=== PATIENT | male | born 1960 | race Caucasian/White ===

== ENCOUNTER 2023-02-14 09:55 | Observation (INO) ==
--- NOTE | 2023-01-19 13:33 | PAT Medication Instructions ---
Medication Instructions Date of Service January 19, 2023 Home Medications acetaminophen 500 mg tablet (Tylenol Extra Strength) 500 - 1,000 mg PO Q6H PRN Pain calcium citrate 500 mg-vitamin D3 12.5 mcg (500 unit) chewable tablet 1 tab PO QAM cholecalciferol (vitamin D3) 25 mcg (1,000 unit) tablet 25 mcg PO QAM furosemide 20 mg tablet (Lasix) 20 mg PO DAILY PRN LEG SWELLING vitamin B complex 1 tab PO QAM multivitamin 1 tab PO QAM DO NOT take the morning of surgery calcium citrate 500 mg-vitamin D3 12.5 mcg (500 unit) chewable tablet 1 tab PO QAM cholecalciferol (vitamin D3) 25 mcg (1,000 unit) tablet 25 mcg PO QAM furosemide 20 mg tablet (Lasix) 20 mg PO DAILY PRN LEG SWELLING vitamin B complex 1 tab PO QAM multivitamin 1 tab PO QAM Take morning of surgery With a small sip of water, OTHERWISE NOTHING TO EAT OR DRINK AFTER MIDNIGHT: acetaminophen 500 mg tablet (Tylenol Extra Strength) 500 - 1,000 mg PO Q6H PRN Pain (if needed) Other Notes If you have any questions please call us at [phone] or [phone] or [phone] or [phone]
--- NOTE | 2023-01-28 09:12 | Anesthesiology Consultation ---
Date of Service January 28, 2023 Assessment & Plan (1) Encounter for pre-operative examination: - COVID screening: Per assessment on 01/28: No known COVID-19 positive contacts or current COVID-19 related symptoms. Travel screen negative. At surgeon discretion if preop Covid testing being done. - Outpatient joint assessment: Pt currently scheduled for inpatient pathway. If surgeon requests review for outpatient joint pathway, patient is an acceptable candidate for outpatient joint program from anesthesia standpoint pending surgeon's office assessment that patient is motivated, has good support and completes [facility] Program preop requirements. - Hemidiaphragm elevation: Patient scheduled for right shoulder surgery. Preop CXR showed elevation of the right hemidiaphragm - Hypernatremia: Sodium mildly elevated at 147 on preop labs. Will recheck level AM DOS. Chart Review Chart Review: Acceptable Risk for Surgery and Patient seen in Pre Admission Testing Teaching & Discussion Pre-Anesthesia Teaching/Discussion Notes: Instructed NPO after midnight before surgery,except medications with 15 cc of water. Medication instructions provided according to the PAT guidelines. History Surgery Operation Date: 02/14/23 07:15 Proposed Procedures p Right Total Shoulder Arthroplasty Reverse - Forrest Aleman MD Height/Weight Height: 5 ft 7 in Weight: 103.6 kg Allergies Allergy/AdvReac Type Severity Reaction Status Date / Time latex Allergy Mild IRRITATION Verified 01/19/23 10:51 OF SKIN indomethacin AdvReac Intermediate SEVERE Verified 01/19/23 10:51 VOMITING Medications Home Medications Medication Instructions Recorded Confirmed Last Taken acetaminophen 500 mg tablet 500 - 1,000 mg PO Q6H PRN Pain 11/02/22 01/19/23 Unknown (Tylenol Extra Strength) calcium citrate 500 mg-vitamin D3 1 tab PO QAM 11/02/22 01/19/23 Unknown 12.5 mcg (500 unit) chewable tablet cholecalciferol (vitamin D3) 25 25 mcg PO QAM 11/02/22 01/19/23 Unknown mcg (1,000 unit) tablet furosemide 20 mg tablet (Lasix) 20 mg PO DAILY PRN LEG SWELLING 11/02/22 01/19/23 Unknown vitamin B complex 1 tab PO QAM 11/02/22 01/19/23 Unknown multivitamin 1 tab PO QAM 01/19/23 01/19/23 Unknown Past Medical History Medical History Arthritis GERD (gastroesophageal reflux disease) History of COVID-19 2020 > resolved History of high blood pressure No issues, "resolved" after weight loss Hx of gout Hx of sleep apnea "Resolved" after weight loss (no formal retesting per patient) Needle phobia Exercise / Class Metabolic Activity II 4-5 Yardwork/Stairs/Walk up hill Past Family History Family History Other No family history of adverse response to anesthesia Past Surgical History Surgical History H/O detached retina repair LEFT H/O gastric bypass 2017 H/O shoulder surgery R/L H/O umbilical hernia repair History of ankle surgery LEFT (+ HARDWARE) History of cataract surgery R/L History of esophagogastroduodenoscopy (EGD) History of surgery on left wrist History of tonsillectomy History of total hip arthroplasty R/L Past Anesthesia History No Hx of Anesthesia Complications and No Family Hx of Anesthesia Complications History of PONV No Hx of PONV and No Hx of Motion Sickness Social History Smoking Status: Never smoker Do You Dip or Chew Tobacco: No Hx Alcohol Use: No Hx Substance Use: No substance use type: does not use Review of Systems Patient denies chest pain, shortness of breath, dyspnea on exertion, fever, chills, cough, wheezing, palpitations. Physical Exam Vital Signs VITALS BP 137/77 P 70 TEMP 98.2 SP02 95%RA RESP 18 PHYSICAL Full cervical extension range of motion. Full TMJ range of motion. TMD 3.5 finger breaths Mallampati Score 2 Dentition: intact Lungs: clear throughout to auscultation Cardiac: regular rate and rhythm, no murmurs noted Spine: normal Carotid arteries: negative bruit Extremities: no LE edema Lab Results Anesthesia Preop Results Results Anesthesia Widget: WBC 4.83 K/ul (4.8-10.8) 01/28/23 Hgb 14.2 g/dl (14.0-18.0) 01/28/23 Hct 44.0 % (42.0-52.0) 01/28/23 Plt 187 K/uL (130-400) 01/28/23 Na 147 mmol/L (136-145) H 01/28/23 K 3.9 mmol/L (3.5-5.1) 01/28/23 Cl 112 mmol/L (98-107) H 01/28/23 CO2 31 mmol/L (21-32) 01/28/23 BUN 27 mg/dl (6-23) H 01/28/23 Creat 1.17 mg/dl (0.6-1.4) 01/28/23 Glucose Level 93 mg/dl (70-99(Fasting)) 01/28/23 PT 11.2 Seconds (9.0-12.0) 01/28/23 PTT 28.0 Seconds (21.0-31.0) 01/28/23 INR 1.0 (0.9-1.1) 01/28/23 Urine Color Yellow 01/28/23 Urine Appearance Cloudy (Clear) A 01/28/23 Urine pH 5.5 (4.5-7.5) 01/28/23 Urine Specific [place] 1.014 (1.000-1.030) 01/28/23 Urine Protein Negative (Negative) 01/28/23 Urine Glucose (UA) Negative (Negative) 01/28/23 Urine Ketones Negative (Negative) 01/28/23 Urine Blood Negative (Negative) 01/28/23 Urine Nitrite Positive (Negative) A 01/28/23 Urine Bilirubin Negative (Negative) 01/28/23 Urine Urobilinogen Negative (Negative) 01/28/23 Urine Leukocyte Esterase 2+ (Negative) H 01/28/23 Urine WBC (Auto) >30 /hpf (0-5) H 01/28/23 Urine RBC (Auto) 0-4 /hpf (0-4) 01/28/23 Urine Hyaline Casts (Auto) 1-5 /lpf (0-5) 01/28/23 Urine Epithelial Cells (Auto) 0-5 /lpf (0-5) 01/28/23 Urine Bacteria (Auto) 4+ (Negative) H 01/28/23 Blood Type O Positive 01/28/23 Antibody Screen NEGATIVE 01/28/23 Testing Laboratory Results Surgeon's office made aware of abnormal UA* Electrocardiogram Date: 01/28/23 NSR at 74bpm. Chest X-Ray Date: 01/28/23 FINDINGS: PA and lateral chest radiographs are compared to study dated 09/24/2008. The cardiomediastinal silhouette is unremarkable. There is elevation of the right hemidiaphragm and bibasilar atelectasis. No airspace consolidation typical for pneumonia or pleural effusion is identified. There is no pneumothorax. The skeletal structures are osteopenic. There are chronic/healed right-sided rib fractures. Degenerative change is seen throughout the spine. IMPRESSION: No active disease in the chest. COVID-19 Risk Screen Screening Information COVID-19 Screen Date: 01/28/23 Exposure 21 Days Family/Household +COVID Last 21 Days: No Exposure 10 Days Any COVID Exposure Last 10 Days: No Symptoms Last 10 Days Experienced COVID Sx Last 10 Days: No + COVID 0-90 Days COVID + in Last 0-90 Days: No
--- NOTE | 2023-02-13 14:15 | History & Physical Report ---
Date of Service February 13, 2023 Assessment & Plan (1) Rotator cuff arthropathy of right shoulder: Plan: Treatment options discussed with the patient. He has failed conservative management and would like to proceed with surgical intervention. Risks, benefits and alternatives to surgery including but not limited to infection, DVT, pain, stiffness, need for revision surgery, damage to blood vessels, damage to nerves, PE, , were discussed with the patient and they wish to proceed. Plan for right reverse total shoulder arthroplasty scheduled for February 14 at [facility] with Dr. Aleman. All questions answered. Patient will follow- up postop. History of Present Illness Chief Complaint: Right shoulder pain Primary Care Provider: Felipe Esquivel MD 62-year-old male with no significant past medical history who presents with ongoing right shoulder pain. Pain is interfering with his daily activities. He has failed conservative measures. He would like to proceed with surgical invention. Patient denies headaches, sweats, fevers, chills, double vision, blurred vision, cough, sore throat, dysphagia, chest pain, sob, wheezing, n/v/d/c, numbness, tingling, fatigue, urinary symptoms, mood disorders. ROS positive for right shoulder pain and stiffness. Allergies Allergy/AdvReac Type Severity Reaction Status Date / Time latex Allergy Mild IRRITATION Verified 01/31/23 13:26 OF SKIN indomethacin AdvReac Intermediate SEVERE Verified 01/31/23 13:26 VOMITING Home Medications Medication Instructions Recorded Confirmed Type acetaminophen 500 mg tablet 500 - 1,000 mg PO Q6H PRN Pain 11/02/22 01/31/23 History (Tylenol Extra Strength) calcium citrate 500 mg-vitamin D3 1 tab PO QAM 11/02/22 01/31/23 History 12.5 mcg (500 unit) chewable tablet cholecalciferol (vitamin D3) 25 25 mcg PO QAM 11/02/22 01/31/23 History mcg (1,000 unit) tablet vitamin B complex 1 tab PO QAM 11/02/22 01/31/23 History multivitamin 1 tab PO QAM 01/19/23 01/31/23 History levofloxacin 500 mg tablet 500 mg PO DAILY 28 days #28 tabs 02/02/23 Rx Past Med/Surg History Medical History Arthritis GERD (gastroesophageal reflux disease) History of COVID-19 2020 > resolved History of high blood pressure No issues, "resolved" after weight loss Hx of gout Hx of sleep apnea "Resolved" after weight loss (no formal retesting per patient) Needle phobia Surgical History H/O detached retina repair LEFT H/O gastric bypass 2018 H/O shoulder surgery R/L H/O umbilical hernia repair History of ankle surgery LEFT (+ HARDWARE) History of cataract surgery R/L History of esophagogastroduodenoscopy (EGD) History of surgery on left wrist History of tonsillectomy History of total hip arthroplasty R/L Family History Other No family history of adverse response to anesthesia Social History (Updated 11/03/22 @ 11:53 by China Breaux LPN) Smoking Status: Never smoker Second Hand Exposure: No; Do You Dip or Chew Tobacco: No; Hx Alcohol Use: No Hx Substance Use: No Preferred Language: Swedish Visual Impairment: Limited Hearing Ability: Normal Interactive Video Technician Required: No Beliefs That Will Affect Care: None marital status: Single Current Living Situation: Alone current occupational status: disabled How many Children do You have: 0 Feels Safe at Home: Yes Safety Concerns: Feels Safe At This Time Childhood Exposure to Second-Hand Smoke: No Diet: regular Dental Care, Regularly: No Physical Activity Frequency: Does not Exercise Seatbelt Use: never Assistive Devices: Glasses Review of Systems All systems reviewed & are unremarkable except as noted in HPI & below Physical Exam Constitutional: well developed and well nourished; no acute distress Eyes: PERRL, conjunctivae normal, anicteric sclerae ENMT: external ear and nose normal, oropharynx normal Neck: trachea midline, no thyromegaly Respiratory: normal respiratory effort, lungs clear to auscultation Cardiovascular: RRR, no murmur, no edema Musculoskeletal: Right shoulder: Crepitation with range of motion. Tenderness anterior lateral acromion. Positive impingement signs. Pain with resisted strength testing. Painful range of motion in all directions. Forward flexion to 15 degrees actively, abduction of 50 degrees actively, external rotation to 15 degrees actively. Skin: no rashes, warm and dry Neurologic: patellar DTR's 2+ bilat, sensation intact Psychiatric: A+Ox3, euthymic affect Results & Data Diagnostic Findings Right shoulder MRI demonstrates massive retracted rotator cuff tear with atrophy. X-rays demonstrate degenerative changes throughout right shoulder with proximal migration humerus. There is arthritic changes glenohumeral joint.
[~2023-02-14 09:55] MED LIST: ACETAMINOPHEN 500 MG TAB PO SCH; BUPIVACAINE 0.5 % 5 MG/1 ML PF 10ML VIAL ONE; CeleBREX 200 MG CAP PO SCH; FAMOTIDINE 20 MG TAB PO SCH; GABAPENTIN 600 MG DOSE PO SCH; LR 15ML/HR IV SCH; METOCLOPRAMIDE HCL 10 MG TABLET PO SCH; TRANEXAMIC ACID 1,000 MG **IV Intra-op IV SCH; TRANEXAMIC ACID 1,000 MG **IV Pre-op IV SCH; ceFAZolin 2000MG 2,000 MG/15 ML SYR IV SCH; dexAMETHasone 4 MG TAB PO SCH
[2023-02-14] MEDS ORDERED: HYDROmorphone INJ 1 MG/ML SYRINGE IV PRN (10:57)
[2023-02-14] MEDS ORDERED: fentaNYL citrate PF 100 MCG/2 ML VIAL IV PRN (10:57)
[2023-02-14] MEDS ORDERED: ATROPINE SULFATE 0.1 MG/ML 10ML SYR IV PRN (10:57)
[2023-02-14] MEDS ORDERED: ONDANSETRON INJ 2 MG/ML 2 ML VIAL IV PRN ×2 (10:57→16:12)
[2023-02-14] MEDS ORDERED: ePHEDrine sulfate 50 MG/ML AMP IV PRN (10:57)
--- NOTE | 2023-02-14 11:43 | History & Physical Bridge Note ---
Date of Service February 14, 2023 History & Physical Bridge Note I have examined the patient, reviewed the History & Physical and in the interval since the performance of the History & Physical I have noted the following changes of clinical significance: no changes noted
[2023-02-14] MEDS ORDERED: PROPOFOL IV EMULSION 10 MG/ML 20 ML VIAL IV ONE (11:52)
[2023-02-14] MEDS ORDERED: MIDAZOLAM HCL 1 MG/ML 2ML VIAL ONE (11:53)
[2023-02-14] MEDS ORDERED: fentaNYL citrate PF 100 MCG/2 ML VIAL ONE (11:53)
[2023-02-14] MEDS ORDERED: ePHEDrine sulfate 50 MG/ML AMP ONE (12:52)
[2023-02-14] MEDS ORDERED: ONDANSETRON INJ 2 MG/ML 2 ML VIAL ONE (12:52)
[2023-02-14] MEDS ORDERED: DEXAMETHASONE SOD INJ 4 MG/ML VIAL ONE (12:52)
[2023-02-14] MEDS ORDERED: ePHEDrine sulfate 50 MG/ML SYR ONE (12:53)
--- NOTE | 2023-02-14 14:44 | Post Operative Brief Note ---
Immediate Post Op Note v1 Date of Surgery February 14, 2023 Pre & Post Diagnosis Operation Date: 02/14/23 12:25 Pre-Op Diagnosis: Rotator cuff arthropathy of right shoulder, chronic irreparable rotator cuff tear Post-Op Diagnosis: Rotator cuff arthropathy of right shoulder, chronic irreparable rotator cuff tear, biceps tendinopathy partial tear biceps high-grade. I identified the patient and participated in the time-out.: Yes Procedure Operation Date: 02/14/23 12:25 Actual Procedures p Right Total Shoulder Arthroplasty Reverse(Right), biceps tenodesis- Forrest Aleman MD Surgeon Forrest Aleman MD Cotton Farmer Joaquim GARCIA Estimated Blood Loss 100 Findings Consistent with Post-Op Diagnosis Specimens Humeral head Drains Hemovac Drain (Dual lumen hemovac drain inserted into right shoulder during procedure by Dr. Aleman) Anesthesia Type General Regional Complications none Disposition Disposition: Recovery Room Overlapping Procedure I was immediately available: during the entire case.
--- NOTE | 2023-02-14 14:52 | Operative Report ---
Post Operative Report Pre & Post Diagnosis Operation Date: 02/14/23 12:25 Pre-Op Diagnosis: Rotator cuff arthropathy of right shoulder, chronic irreparable rotator cuff tear, pseudo paralytic shoulder. Post-Op Diagnosis: Rotator cuff arthropathy of right shoulder, chronic irreparable rotator cuff tear, pseudo paralytic shoulder, biceps tendinopathy with high-grade partial tear proximal biceps tendon I identified the patient and participated in the time-out.: Yes Procedure Operation Date: 02/14/23 12:25 Actual Procedures p Right Total Shoulder Arthroplasty Reverse(Right), biceps tenodesis- Forrest Aleman MD Surgeon Forrest Aleman MD Answering Service Agent Isma GARCIA Estimated Blood Loss 100 Findings Consistent with Post-Op Diagnosis Specimens Humeral head cut Drains 2 Hemovac Anesthesia Type General Regional Complications none Disposition Disposition: Recovery Room Indications 62-year-old male with chronic shoulder pain disability. 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 He only has 20 degrees of active flexion and abduction. MRI demonstrates large retracted rotator cuff tear felt to be irreparable. Description of Procedure The patient was taken to the operating room and anesthetized under regional block and general anesthetic. The patient was positioned on the operating table in a 30 beach chair position with a towel roll under the medial border of the right scapula. The arm was draped free to be able to manipulate the shoulder as needed. The right upper extremity was prepped and draped in usual sterile fashion. Exam demonstrated passive range of motion 160 degrees flexion and on degrees AB duction and 45 degrees external rotation. An anterior deltopectoral approach was performed. A longitudinal incision was made in the deltopectoral interval. The skin was incised sharply. Subcutaneous flaps were elevated off the fascia. The cephalic vein was dissected out and retracted lateral with the deltoid. The clavipectoral fascia was divided at the lateral margin of the conjoined tendon and extended up to the CA ligament. The following findings were noted: The subscapularis tendon was intact and there was bursitis overlying that. There was chronic inflammation around the biceps tendon and the biceps tendon had high-grade partial tearing in the bicipital groove area with significant fraying of the tendon and partial tearing in that area. There is also widening of the tendon proximally significant flattening and widening in the intra-articular portion. There was mild to moderate intra- articular arthritis. There was 1 small strand of rotator interval rotator cuff tissue intact and otherwise complete tear of the supraspinatus and infraspinatus with intact teres minor. There was chronic scarred subacromial bursitis. The upper centimeter of the pectoralis was released for inferior exposure. A self-retaining retractor was placed. the biceps tendon was tenodesed to the pectoralis tendon with #2 FiberWire. The proximal biceps was resected. All the scarred tenosynovium was resected. The subscapular muscle fibers were split longitudinally at the level of the circumflex vessels. The circumflex vessels were identified and tied off with silk ties and divided laterally. A Kitner elevator was used to free up the inferior fibers of the subscapularis off of the capsule. The axillary nerve was identified with a tug test and protected with a blunt Mili retractor between the nerve and the capsule. The subscapularis tendon was then taken down off of the lesser tuberosity subperiosteally, a Vicryl traction suture was placed and a subperiosteal dissection was performed along the neck of the humerus as the arm was gradually externally rotated exposing the humeral head. The humeral head findings demonstrated mild arthritic changes no major osteophytes. retractors were readjusted a Acharya elevator was used to assist in releasing the capsule of the neck of the humerus. The capsule was divided with Campbell scissors down to the glenoid released off the anterior glenoid and the rotator interval was released to meet the capsular release and a 360 release of the subscapularis was accomplished. A Fukuda retractor was placed into the joint retracting the humeral head posterior. Glenoid findings demonstrated mild arthritic changes with intact labrum. The labrum and intra-articular biceps tendon was resected. an anterior-inferior and posterior inferior capsular release were performed with electrocautery and a Acharya elevator on bone with the axillary nerve protected inferiorly by the retractor. Attention was then taken to the humeral preparation. The cutting guide was placed into the humeral head. It was positioned at 20 of retrov ersion. Oscillating saw was used to resect the humeral head giving the cut above the level of the posterior rotator cuff insertion site. The humerus was then prepared for the stem. I used the ascend flex stem from [employer]. The sizing broaches were used followed by trial broaches up to a size 5B long which had the appropriate fit and fill. The appropriate sized cut protector was placed. The humerus was then retracted posterior to the glenoid. The glenoid was sized for a 29. The guide for the baseplate was positioned in a 10 inferior tilt and the central drill hole was made. The reamer for the 29 mm baseplate was used. The central drill was widened for the peg. The Tornier aequalis 29 mm standard post hydroxyapatite-coated baseplate was impacted into position. The base plate was transfixed with superior and inferior locking screws and anterior and posterior compression screws with stable fixation. The fan reamer was used for the 42 millimeter glenoid sphere. After irrigation the 42 mm symmetrical glenoid sphere was impacted onto the baseplate and the security screw was tightened. Attention was taken back to the humerus. The cut protector was removed and the plus or high offset humeral tray trial was assembled to the trial stem rotated appropriately to get bony coverage and then screwed in position. A trial reduction was performed. A +9, 42 mm reversed trial insert demonstrated good stability and no shuck. The trials were removed. 3 drill holes are made into the harder bone in the bicipital groove area and 3 #5 FiberWire sutures were placed transosseously. The canal was irrigated with antibiotic solution with bacitracin. The final component was assembled. The final component was +9, 42 mm reversed polyethylene insert with the +0 high offset tray and a 5B long ascend flex stem. This was then impacted into the humerus with a tight press-fit. It was reduced to the glenoid sphere. Stability was verified. Subscapularis was repaired with the #5 FiberWire sutures using Gulshan-Wally suture technique. Lateral row soft tissue repair was performed with #2 FiberWire [id number] sutures. The pectoralis was repaired with #2 FiberWire [id number] sutures reinforcing the biceps tendon tenodesis. The arm was taken through a range of motion which demonstrated 150 degrees flexion 90 degrees AB duction 45 degrees external rotation. The implant was stable through the range of motion tested. The wound was copiously irrigated. 2 Hemovac drains were placed. The deltopectoral interval was closed with [id number] #1 Vicryl sutures. The subcutaneous tissues were closed with 2-0 Vicryl sutures. The skin was closed with luther. Sterile dressings were applied and a shoulder immobilizer. Isma GARCIA my physician museum assistant acted as advertising sales assistant throughout the procedure .He performed functions including patient positioning, arm positioning, prepping and draping, soft tissue retraction, instrument management, suture management and performed the subcutaneous and skin closure and will participate in the postoperative care of the patient. I attest to the content of the Intraoperative Record and any orders documented therein. Any exceptions are noted below.
--- NOTE | 2023-02-14 15:19 | Anesthesiology Progress Note ---
Date of Service February 14, 2023 Anesthesia Post Procedure Vital Signs Vital Signs: Temp Pulse Pulse Resp BP Pulse Ox O2 Del Method 02/14/23 15:10 65 14 128/75 94 Oxymask 02/14/23 15:00 64 14 135/78 94 Oxymask 02/14/23 14:50 71 18 138/83 96 Oxymask 02/14/23 14:40 65 20 128/76 95 Oxymask 02/14/23 14:37 36.0 C L 67 14 142/80 H 95 Oxymask 02/14/23 10:27 36.7 C 63 18 161/106 H 95 Room Air O2 Flow Rate 02/14/23 15:10 2 02/14/23 15:00 3 02/14/23 14:50 3 02/14/23 14:40 6 02/14/23 14:37 6 02/14/23 10:27 Pain Intensity Right Shoulder: Pain Intensity: 0 Transfer of Care Handoff Completed per policy Notes Mental Status: alert / awake / arousable and participated in evaluation Patient Amnestic to Procedure: Yes Nausea / Vomiting: adequately controlled Pain: adequately controlled Airway Patency, RR, SpO2: stable & adequate BP & HR: stable & adequate Hydration State: stable & adequate Anesthetic Complications: no major complications apparent and Pt Satisfied with anesthetic care
--- NOTE | 2023-02-14 16:10 | XRay Report ---
RIGHT SHOULDER 2 VIEWS CLINICAL HISTORY: Postoperative examination. FINDINGS: 2 portable views of the right shoulder are obtained. No prior studies are available for [facility] at the time of dictation. The skeletal structures are osteopenic. A right shoulder arthroplas ty is in near anatomic alignment. Skin clips, a surgical drain, subcutaneous gas, and soft tissue swe lling overlying the right shoulder are expected postoperative changes. No acute fracture is seen. The re is widening at the acromioclavicular joint. The right lung parenchyma is clear as imaged noting ba silar atelectasis. There are chronic/healed right-sided rib fractures. IMPRESSION: Expected postoperative findings status post right shoulder arthroplasty. No acute fractur e is seen. Electronically signed by: Sarabjit Buenrostro M.D. 02/14/2023 4:09 PM
[2023-02-14] MEDS ORDERED: NALOXONE HCL 0.4 MG/1 ML VIAL/CARP IV PRN (16:12)
[2023-02-14] MEDS ORDERED: METOCLOPRAMIDE HCL INJ 5 MG/ML 2 ML VIAL IV PRN (16:12)
[2023-02-14] MEDS ORDERED: bisacodyL 10 MG SUPP PR PRN (16:12)
[2023-02-14] MEDS ORDERED: HYDROmorphone INJ 0.5 MG/0.5 ML SYR IV PRN (16:12)
[2023-02-14] MEDS ORDERED: oxyCODONE HCL IR 5 MG TAB (IMMEDIATE RELEASE) PO PRN (16:12)
[2023-02-14] MEDS ORDERED: MAGNESIUM HYDROXIDE SUSP 30 ML UDC PO PRN (16:12)
[2023-02-14] MEDS: SODIUM CHLORIDE 0.9% 1000ML 1,000 ML IV SCH (16:19)
[2023-02-14 19:18] LABS: Calcium 8.7 mg/dl (8.6-10.3); Potassium 4.5 mmol/L (3.5-5.1)
[2023-02-14 19:24] LABS: Creatinine Clr Calc Pharmacy 84.8 ml/min; Est GFR (African American) 88.4 ml/min; Est GFR (Non-African American) 76.2 ml/min
[2023-02-14] MEDS: DOCUSATE SODIUM 100 MG CAP PO SCH (20:53)
[2023-02-14] MEDS: ACETAMINOPHEN 500 MG TAB PO SCH (20:53)
[2023-02-14] MEDS: ceFAZolin 2000MG 2,000 MG/15 ML SYR IV SCH (20:57)
[2023-02-14] MEDS ORDERED: SENNA 8.6 MG TAB PO SCH (21:00)
[2023-02-15] MEDS: SODIUM CHLORIDE 0.9% 1000ML 1,000 ML IV SCH (03:02)
[2023-02-15] MEDS: ceFAZolin 2000MG 2,000 MG/15 ML SYR IV SCH (06:00)
[2023-02-15] MEDS: ACETAMINOPHEN 500 MG TAB PO SCH ×2 (06:11→13:47)
--- NOTE | 2023-02-15 07:22 | Orthopedic Progress Note ---
Date of Service February 15, 2023 Assessment & Plan (1) Rotator cuff arthropathy of right shoulder: Plan: Postop day 1 status post right reverse total shoulder arthroplasty. PT/OT protocols. Nonweightbearing right upper extremity. DVT prophylaxis-SCDs Pain management as written. A.m. labs pending DC plan-planning for outpatient PT upon discharge. Plan for discharge today. We will see how patient progresses with PT and await labs. Admission and Anticipated Discharge Date Admission Date: February 14, 2023 Subjective Postop day 1 Patient sleeping upon arrival. Easily awoken. No complaints this morning. States that his block is still working. Pain is controlled. Physical Exam Physical Exam: Dressings are clean, dry, and intact. Sling is in place. Continues to have weak dosier operator strength in the operative side secondary to his nerve block. Continues to have some residual decree sensation. Capillary refill is less than 2 seconds. Results & Data Vital Signs (Past 12 Hours) Vital Signs Temp Pulse Pulse Resp BP Pulse Ox O2 Del Method 02/15/23 04:00 36.6 C 77 16 123/87 95 Nasal Cannula 02/14/23 22:42 Nasal Cannula 02/15/23 00:32 36.7 C 87 16 129/85 95 Nasal Cannula 02/14/23 22:01 36.5 C 81 18 113/73 96 Nasal Cannula O2 Flow Rate 02/15/23 04:00 2 02/14/23 22:42 2 02/15/23 00:32 2 02/14/23 22:01 2
[2023-02-15] MEDS: DOCUSATE SODIUM 100 MG CAP PO SCH (08:09)
[2023-02-15 08:43] LABS: Basophils # (auto) 0.03 K/uL (0-0.2); Basophils % (auto) 0.3 %; Hematocrit (blood only) 38.2 % (42.0-52.0); Hemoglobin 12.4 g/dl (14.0-18.0); Immature Granulocytes # (auto) 0.03 K/uL (0.01-0.20); Immature Granulocytes % (auto) 0.3 %; Lymphocytes # (auto) 1.43 K/uL (1.2-3.4); Lymphocytes % (auto) 15.2 %; Mean Corpuscular Hemoglobin 28.8 pg (25.0-34.0); Mean Corpuscular Hgb Conc 32.5 g/dL (32.0-36.0); Mean Corpuscular Volume 88.8 fL (80.0-100.0); Mean Platelet Volume 9.6 fL (9.4-12.4); Monocytes # (auto) 0.75 K/uL (0.11-0.59); Neutrophils # (auto) 7.16 K/uL (1.40-6.50); Neutrophils % (auto) 76.2 %; Platelet Count 212 K/uL (130-400); RDW Standard Deviation 45.1 fL (36.4-46.3)
[2023-02-15 08:52] LABS: BUN Creatinine Ratio 21.1 (10-20); Calcium 8.5 mg/dl (8.6-10.3); Creatinine Clr Calc Pharmacy 81.7 ml/min; Est GFR (African American) 84.5 ml/min; Est GFR (Non-African American) 72.9 ml/min; Potassium 4.4 mmol/L (3.5-5.1)
[2023-02-15] MEDS ORDERED: VITAMIN B COMPLEX TAB PO SCH (09:00)
[2023-02-15] MEDS ORDERED: NON-FORMULARY MEDICATION (Multivitamin Tablet) PO SCH (09:00)
[2023-02-15] MEDS ORDERED: CHOLECALCIFEROL 1,000 UNITS 25 MCG TAB PO SCH (09:00)
[2023-02-15] MEDS ORDERED: CALCIUM 600MG + VIT D 400 IU TAB PO SCH (09:00)
[2023-02-15] MEDS ORDERED: MULTIVITAMIN TAB PO SCH (09:00)
[2023-02-15] MEDS ORDERED: DEXTROSE 5% 1,000 ML IV SCH (12:45)
--- NOTE | 2023-02-15 13:02 | Hospitalist Consultation ---
Date of Consultation February 15, 2023 Assessment & Plan (1) Right rotator cuff tear: Discharge instructions and DVT prophyaxis per primary service (2) Hypernatremia: Sodium is 146. Sodium has been chronically elevated. Discussed improving his home water intake, cutting back on ice tea. Perhaps having a slice of furit in his water or to drink water with ice. Patient reports he dislikes water at room temperature, and prefers it has flavor. Will recommend his PCP recheck his sodium. History of Present Illness Reason for Consultation: hypernatremia Attending Physician: Forrest Aleman MD History of Present Illness 62 yo male with PMH described below is admitted under observation for: Rotator cuff arthropathy of right shoulder, chronic irreparable rotator cuff tear, pseudo paralytic shoulder, biceps tendinopathy with high-grade partial tear proximal biceps tendon p Right Total Shoulder Arthroplasty Reverse(Right), biceps tenodesis Patient will be discharged today however, orthopedics wanted medicine to discuss hypernatremia. Allergies Allergy/AdvReac Type Severity Reaction Status Date / Time latex Allergy Mild IRRITATION Verified 02/14/23 10:24 OF SKIN indomethacin AdvReac Intermediate SEVERE Verified 02/14/23 10:24 VOMITING Home Medications Medication Instructions Recorded Confirmed Type calcium citrate 500 mg-vitamin D3 1 tab PO QAM 11/02/22 02/14/23 History 12.5 mcg (500 unit) chewable tablet cholecalciferol (vitamin D3) 25 25 mcg PO QAM 11/02/22 02/14/23 History mcg (1,000 unit) tablet vitamin B complex 1 tab PO QAM 11/02/22 02/14/23 History multivitamin 1 tab PO QAM 01/19/23 02/14/23 History levofloxacin 500 mg tablet 500 mg PO DAILY 28 days #28 tabs 02/02/23 02/14/23 Rx acetaminophen 500 mg tablet 1,000 mg PO Q8 14 days #84 tabs 02/15/23 Rx (Tylenol Extra Strength) oxycodone 5 mg tablet 5 mg PO Q4H PRN pain #30 tabs 02/15/23 Rx Patient History Medical History Arthritis GERD (gastroesophageal reflux disease) History of COVID-2020 > resolved History of high blood pressure No issues, "resolved" after weight loss Hx of gout Hx of sleep apnea "Resolved" after weight loss (no formal retesting per patient) Needle phobia Surgical History H/O detached retina repair LEFT H/O gastric bypass 2017 H/O shoulder surgery R/L H/O umbilical hernia repair History of ankle surgery LEFT (+ HARDWARE) History of cataract surgery R/L History of esophagogastroduodenoscopy (EGD) History of surgery on left wrist History of tonsillectomy History of total hip arthroplasty R/L Family History Other No family history of adverse response to anesthesia Social History Smoking Status: Never smoker Second Hand Exposure: No; Do You Dip or Chew Tobacco: No; Hx Alcohol Use: No Hx Substance Use: No Preferred Language: Italian Communication Ability: Effective Visual Impairment: Limited Hearing Ability: Normal Surgical Nurse Required: No Beliefs That Will Affect Care: None marital status: Single Current Living Situation: Alone current occupational status: disabled How many Children do You have: 0 Feels Safe at Home: Yes Safety Concerns: Feels Safe At This Time Childhood Exposure to Second-Hand Smoke: No Diet: regular Dental Care, Regularly: No Physical Activity Frequency: Does not Exercise Seatbelt Use: never Assistive Devices: None Review of Systems Constitutional: no fever Eyes: no blind spots Ear, Nose, Mouth, Throat: no ear pain Respiratory: no cough Cardiovascular: no chest pain Gastrointestinal: no abdominal pain Genitourinary: no dysuria Musculoskeletal: no back pain Integumentary: no boil Neurologic: no gait abnormality Psychiatric: no behavioral changes Endocrine: no fatigue Hematologic / Lymphatic: no easy bleeding Allergy / Immunological: no GI upset with certain foods Physical Exam Constitutional: WD/WN, vitals as above Eyes: PERRL, conjunctivae normal, anicteric sclerae ENMT: external ear and nose normal, oropharynx normal Neck: trachea midline, no thyromegaly Respiratory: normal respiratory effort, lungs clear to auscultation Cardiovascular: RRR, no murmur, no edema Gastrointestinal (Abdomen): normal bowel sounds, soft, nontender, no hepatosplenomegaly Skin: no rashes, warm and dry Psychiatric: A+Ox3, euthymic affect Lymphatic: no cervical or axillary lymphadenopathy Results & Data Results & Data Vital Signs (Past 12 Hours) Vital Signs Temp Pulse Pulse Resp BP Pulse Ox O2 Del Method 02/15/23 12:43 36.5 C 81 78 18 134/78 92 02/15/23 11:24 36.5 C 78 18 134/78 92 Room Air 02/15/23 07:28 36.4 C L 73 16 159/90 H 97 Room Air 02/15/23 04:00 36.6 C 77 16 123/87 95 Nasal Cannula O2 Flow Rate 02/15/23 12:43 02/15/23 11:24 02/15/23 07:28 02/15/23 04:00 2 PG Care Time/CCT Total # of Minutes Spent Total Time Spent with Patient: Total time spent is greater than 50% in coordination of care (as documented) at patient's floor/unit and/or counseling patient: Coding Level of Care Code 80520 IN/OBS CONSULT LVL 3,45M Diagnoses Right rotator cuff tear M75.101 Hypernatremia E87.0
--- NOTE | 2023-02-17 14:55 | Discharge Summary ---
Date of Service February 17, 2023 Admission HPI Per Admitting Provider 62-year-old male with no significant past medical history who presents with ongoing right shoulder pain. Pain is interfering with his daily activities. He has failed conservative measures. He would like to proceed with surgical invention. Patient denies headaches, sweats, fevers, chills, double vision, blurred vision, cough, sore throat, dysphagia, chest pain, sob, wheezing, n/v/d/c, numbness, tingling, fatigue, urinary symptoms, mood disorders. ROS positive for right shoulder pain and stiffness. Admission Exam Per Admitting Provider Constitutional: well developed and well nourished; no acute distress Eyes: PERRL, conjunctivae normal, anicteric sclerae ENMT: external ear and nose normal, oropharynx normal Neck: trachea midline, no thyromegaly Respiratory: normal respiratory effort, lungs clear to auscultation Cardiovascular: RRR, no murmur, no edema Musculoskeletal: Right shoulder: Crepitation with range of motion. Tenderness anterior lateral acromion. Positive impingement signs. Pain with resisted strength testing. Painful range of motion in all directions. Forward flexion to 15 degrees active ly, abduction of 50 degrees actively, external rotation to 15 degrees actively. Skin: no rashes, warm and dry Neurologic: patellar DTR's 2+ bilat, sensation intact Psychiatric: A+Ox3, euthymic affect Principal Diagnosis Right shoulder rotator cuff arthropathy Discharge Exam Dressings are clean, dry, and intact. Sling is in place. Continues to have weak head of training and development strength in the operative side secondary to his nerve block. Continues to have some residual decree sensation. Capillary refill is less than 2 seconds. Constitutional well developed and well nourished; no acute distress Discharge Data Allergies Allergy/AdvReac Type Severity Reaction Status Date / Time latex Allergy Mild IRRITATION Verified 02/14/23 10:24 OF SKIN indomethacin AdvReac Intermediate SEVERE Verified 02/14/23 10:24 VOMITING Consultations 02/09/23 15:31 Consult Hospitalist Routine Procedures Performed Operation Date: 02/14/23 12:25 Actual Procedures p Right Total Shoulder Arthroplasty Reverse(Right) - Forrest Aleman MD Ordered Studies 02/14/23 05:00 US - OR guided needle placemen Routine Hospital Course (1) Rotator cuff arthropathy of right shoulder: Postop day 1 status post right reverse total shoulder arthroplasty. PT/OT protocols. Nonweightbearing right upper extremity. DVT prophylaxis-SCDs Pain management as written. A.m. labs pending DC plan-planning for outpatient PT upon discharge. Plan for discharge today. We will see how patient progresses with PT and await labs. Lab Results 02/14/23 02/14/23 02/15/23 Range/Units 10:05 16:39 07:43 WBC 9.40 (4.8-10.8) K/ul RBC 4.30 L (4.70-6.10) M/uL Hgb 12.4 L (14.0-18.0) g/dl Hct 38.2 L (42.0-52.0) % MCV 88.8 (80.0-100.0) fL MCH 28.8 (25.0-34.0) pg MCHC 32.5 (32.0-36.0) g/dL RDW Std Deviation 45.1 (36.4-46.3) fL RDW Coeff of Garry 14.0 (11.5-14.5) % Plt Count 212 (130-400) K/uL MPV 9.6 (9.4-12.4) fL Immature Gran % (Auto) 0.3 % Neut % (Auto) 76.2 % Lymph % (Auto) 15.2 % Glasscock % (Auto) 8.0 % Eos % (Auto) 0.0 % Baso % (Auto) 0.3 % Neut # (Auto) 7.16 H (1.40-6.50) K/uL Lymph # (Auto) 1.43 (1.2-3.4) K/uL Glasscock # (Auto) 0.75 H (0.11-0.59) K/uL Eos # (Auto) 0.00 (0-0.50) K/uL Baso # (Auto) 0.03 (0-0.2) K/uL Immature Gran # (Auto) 0.03 (0.01-0.20) K/uL Sodium 144 (136-145) mmol/L Potassium 4.5 (3.5-5.1) mmol/L Chloride 111 H (98-107) mmol/L Carbon Dioxide 25 (21-32) mmol/L Anion Gap 8 (3-11) BUN 21 (6-23) mg/dl Creatinine 1.05 (0.6-1.4) mg/dl Est Cr Clr Drug Dosing 84.8 ml/min Est GFR ( Amer) 88.4 ml/min Est GFR (Non-Af Amer) 76.2 ml/min BUN/Creatinine Ratio 20.0 (10-20) Glucose 133 H (70-99(Fasting)) mg/dl Calcium 8.7 (8.6-10.3) mg/dl SARS-CoV-2, RNA, NAAT NEGATIVE (NEGATIVE) 02/15/23 Range/Units 07:43 WBC (4.8-10.8) K/ul RBC (4.70-6.10) M/uL Hgb (14.0-18.0) g/dl Hct (42.0-52.0) % MCV (80.0-100.0) fL MCH (25.0-34.0) pg MCHC (32.0-36.0) g/dL RDW Std Deviation (36.4-46.3) fL RDW Coeff of Garry (11.5-14.5) % Plt Count (130-400) K/uL MPV (9.4-12.4) fL Immature Gran % (Auto) % Neut % (Auto) % Lymph % (Auto) % Glasscock % (Auto) % Eos % (Auto) % Baso % (Auto) % Neut # (Auto) (1.40-6.50) K/uL Lymph # (Auto) (1.2-3.4) K/uL Glasscock # (Auto) (0.11-0.59) K/uL Eos # (Auto) (0-0.50) K/uL Baso # (Auto) (0-0.2) K/uL Immature Gran # (Auto) (0.01-0.20) K/uL Sodium 146 H (136-145) mmol/L Potassium 4.4 (3.5-5.1) mmol/L Chloride 112 H (98-107) mmol/L Carbon Dioxide 30 (21-32) mmol/L Anion Gap 4 (3-11) BUN 23 (6-23) mg/dl Creatinine 1.09 (0.6-1.4) mg/dl Est Cr Clr Drug Dosing 81.7 ml/min Est GFR ( Amer) 84.5 ml/min Est GFR (Non-Af Amer) 72.9 ml/min BUN/Creatinine Ratio 21.1 H (10-20) Glucose 130 H (70-99(Fasting)) mg/dl Calcium 8.5 L (8.6-10.3) mg/dl SARS-CoV-2, RNA, NAAT (NEGATIVE) Total Time Total Time Spent Total Time Spent (In Minutes): 20 Discharge Plan Discharge Items Patient Disposition: Home - Self-Care Reason For Visit: POST OP Discharge Diagnosis: Right shoulder rotator cuff arthropathy Activity: Per Instructions section Weightbearing: Right non-weightbearing Non-emergency contact: Surgeon Call non-emergency contact if: you have any medication questions, your pain is not controlled, you have a fever, your temperature is above 101, your wound has increased redness and your wound has increased drainage Follow-up/Referrals: Felipe Esquivel MD [Primary Care Provider] - Forrest Aleman MD [Surgeon] - (Follow-up with Dr. Aleman or his PA in 2 weeks from the day of surgery for your first postoperative visit.) Diet: Regular Addtl Attending Provider Instructions: ACTIVITY RECOMMENDATIONS: SELF CARE INSTRUCTIONS AFTER TOTAL SHOULDER ARTHROPLASTY REVERSE A. You may do daily exercises as taught in physical therapy while in hospital. No lifting with the operative arm. B. You are to wear your sling/immobilizer at all times EXCEPT when performing your daily exercises and for hygiene purposes. C. You may perform dry, daily dressing changes. Please keep your incision covered. You may shower 48 hours after surgery. Do not apply soap or any ointment /lotions directly over incision. Do not soak incision in bath tub/swimming pool. D. You may use ice as needed to operative shoulder. SPECIAL CARE INSTRUCTIONS: VERY IMPORTANT TO READ AND REVIEW A. There are a few signs you need to watch for after you are home. Call [facility] at [phone] if you experience any of the followin. Increased severe shoulder pain. Some pain is expected especially when you exercise. 2. Increased swelling in you shoulder or arm; pain or swelling in either upper extremity. 3. Any fluid drainage from the incision. 4. Shortness of breath or chest pain. B. Please call [facility] at [phone] if you have any questions or concerns about your operation or recovery. C. Call your physician if: 1. Temperature is greater than 101 degrees (F). 2. Pain is not relieved by prescribed pain medications. 3. Increase drainage or redness from incision. 4. Unanswered questions or concerns. FOLLOW UP VISIT: Please call [facility] at [phone] to schedule a follow up appointment with Dr. Aleman or his PA in 12-14 days from your surgery date. Stand-Alone Forms: [facility], Smoking Cessation Medications and DC Order Prescriptions: New acetaminophen [Tylenol Extra Strength] 500 mg Tablet 1,000 mg PO Q8 14 Days Qty: 84 0RF oxycodone 5 mg tablet 5 mg PO Q4H MDD 6 PRN (Reason: pain) Qty: 30 0RF Continued levofloxacin 500 mg tablet 500 mg PO DAILY 28 Days Qty: 28 0RF cholecalciferol (vitamin D3) 25 mcg (1,000 unit) tablet 25 mcg PO QAM calcium citrate-vitamin D3 500 mg-12.5 mcg (500 unit) tablet,chewable 1 tab PO QAM vitamin B complex Tablet 1 tab PO QAM multivitamin Tablet 1 tab PO QAM Discontinued acetaminophen [Tylenol Extra Strength] 500 mg tablet 500 - 1,000 mg PO Q6H PRN (Reason: Pain) Discharge Orders: Discharge Order (Routine); Ordered 02/15/23 Ordered By: Daniele Villareal Admission Data Admit Date/Time: 02/14/23 14:43 Attending Provider: Forrest Aleman Admit Provider: Forrest Aleman Primary Care Provider: Felipe Esquivel Other Providers: Joaquin Saldana Other Interventions: Discharge Summary Assessment (RN) Last Done: 02/15/23 12:43
== END 2023-02-15 14:47 | disposition home or self-care (01) ==
LOC: ASU 09:55 → 3N 09:55